=== PATIENT | female | born 1960 | race Two or more races ===

== ENCOUNTER 2017-02-25 08:19 | Inpatient (IN) | payer MEDICAID ==
[2017-02-25] VITALS (11 sets, daily range): BP systolic 117–161; BP diastolic 76–96
[~2017-02-25] VITALS: Ht 157.5 cm; Wt 63.5 kg
[~2017-02-25 08:19] MED LIST: IBUPROFEN600 MG PO; NORCO 5-325 TA1 EACH PO
[2017-02-25] MEDS ORDERED: METFORMIN HCL850 M1 ORAL (08:30)
[2017-02-25] MEDS ORDERED: Ipratropium 0.02% Inh Soln 2.5ml UD HHN ONE (08:45)
[2017-02-25] MEDS ORDERED: Levalbuterol Inh UD 1.25mg/0.5ml HHN ONE (08:45)
[2017-02-25] MEDS ORDERED: Solu-MEDROL 125mg Inj IVP ONE (08:45)
[2017-02-25 08:48] LABS: BASOPHILS % (AUTO) 0.6 % (0.0-2.0); EOSINOPHILS % (AUTO) 0.4 % (0.0-3.0); LYMPHOCYTES % (AUTO) 25.4 % (20.0-45.0); MEAN CORPUSCULAR HEMOGLOBIN 24.2 PG (27.0-31.0); MEAN CORPUSCULAR HGB CONC 31.4 G/DL (32.0-36.0); MEAN CORPUSCULAR VOLUME 77 FL (80-99); MEAN PLATELET VOLUME 7.2 FL (6.5-10.1); MONOCYTES % (AUTO) 8.1 % (1.0-10.0); NEUTROPHILS % (AUTO) 65.5 % (45.0-75.0); PLATELET COUNT 210 K/UL (150-450); RED BLOOD COUNT 5.14 M/UL (4.20-5.40); RED CELL DISTRIBUTION WIDTH 15.1 % (11.6-14.8); WHITE BLOOD COUNT 8.1 K/UL (4.8-10.8)
[2017-02-25 09:07] LABS: ALANINE AMINOTRANSFERASE 19 U/L (3-33); ASPARTATE AMINO TRANSFERASE 16 U/L (5-40); CALCIUM 9.6 mg/dL (8.6-10.2); CARBON DIOXIDE 23 mEQ/L (20-30); CREATININE 0.7 mg/dL (0.5-0.9); GLOMERULAR FILTRATION RATE > 60 mL/min (>60); TOTAL PROTEIN 7.4 g/dL (6.6-8.7)
[2017-02-25 09:08] LABS: ALBUMIN/GLOBULIN RATIO 1.2 (1.0-2.7); ANION GAP 20 (5-15); CHLORIDE 92 mEQ/L (98-107); HEMOLYSIS 2; POTASSIUM 4.1 mEQ/L (3.4-4.9); SODIUM 135 mEQ/L (135-145); TROPONIN I < 0.30 ng/mL (<=0.30)
[2017-02-25 09:10] LABS: REFLEX LACTIC ACID YES OR NO YES
[2017-02-25 09:18] LABS: CKMB < 1.5 ng/mL (< 3.8)
[2017-02-25] MEDS: Levalbuterol Inh UD 1.25mg/0.5ml HHN SCH ×5 (09:35→10:30)
[2017-02-25] MEDS: Ipratropium 0.02% Inh Soln 2.5ml UD HHN SCH ×3 (09:35→10:00)
[2017-02-25 10:20] LABS: APPEARANCE,URINE CLEAR; KETONES,URINE NEGATIVE (NEGATIVE); LEUKOCYTE ESTERASE ,URINE NEGATIVE (NEGATIVE); NITRITE,URINE NEGATIVE (NEGATIVE); PH,URINE 6 (4.5-8.0); PROTEIN,URINE NEGATIVE (NEGATIVE); UROBILINOGEN,URINE NORMAL MG/DL (0.0-1.0)
[2017-02-25 10:35] LABS: BACTERIA,URINE FEW /HPF; RBC,URINE 0-2 /HPF (0 - 2); SQUAMOUS EPITHELIAL CELL,UR FEW /LPF (NONE/OCC); WBC,URINE 0-2 /HPF (0 - 2)
[2017-02-25] MEDS ORDERED: Azithromycin 500 MG in NS 275 ML IV ONE (11:00)
[2017-02-25] MEDS ORDERED: cefTRIAXone 1 GM in NS 55 ML IV ONE (11:00)
[2017-02-25] MEDS ORDERED: NEXIUM20 MG ORAL (11:09)
[2017-02-25] MEDS ORDERED: Azithromycin Inj IV ONE (11:19)
[2017-02-25] MEDS: LR 1000ml 1,000 ML IV SCH ×2 (11:21→12:00)
[2017-02-25 11:50] LABS: THYROID STIMULATING HORMONE 1.06 uIU/mL (0.300-4.500)
--- NOTE | 2017-02-25 13:26 | Emergency Room Report ---
History of Present Illness General Chief Complaint: Upper Respiratory Illness Source: Patient Present Illness HPI 56-year-old female presents ED for evaluation. Patient states she's had a productive cough with shortness of breath for 3 days. Denies history of asthma but states that whenever she gets sick she is prescribed antibiotics and inhaler. States that it is worse this time. Denies any chest pain. No fevers chills. Denies sick contacts recent travel. No other aggravating relieving factors. Denies any other associated symptoms Allergies: Coded Allergies: No Known Allergies (Unverified , 10/11/12) Patient History Past Medical History: DM, GERD Past Surgical History: none Pertinent Family History: none Social History: Denies: alcohol use, drug use, smoking Now: No Immunizations: UTD Reviewed Nursing Documentation: PMH: Agreed, PSxH: Agreed Nursing Documentation-PMH Past Medical History: No History, Except For Hx Diabetes: Yes Hx Gastrointestinal Problems: Yes - taking Nexium daily Review of Systems All Other Systems: negative except mentioned in HPI Physical Exam Vital Signs Date Time Temp Pulse Resp B/P Pulse Ox O2 Delivery O2 Flow Rate FiO2 02/25/17 08:27 97.9 122 20 148/96 95 Room Air 02/25/17 08:40 94 02/25/17 09:17 2.0 Sp02 EP Interpretation: reviewed, normal General Appearance: no apparent distress, alert, GCS 15, non-toxic Head: normocephalic Eyes: bilateral eye PERRL, bilateral eye normal inspection ENT: normal ENT inspection Neck: normal inspection Respiratory: crackles, wheezing Cardiovascular #1: tachycardia Gastrointestinal: normal inspection Rectal: deferred Genitourinary: no CVA tenderness Musculoskeletal: normal inspection Neurologic: alert, oriented x3, responsive, motor strength/tone normal, sensory intact, speech normal Psychiatric: normal inspection Skin: normal inspection Lymphatic: normal inspection Medical Decision Making Diagnostic Impression: Primary Impression: Asthma exacerbation Additional Impressions: Tachycardia Lactic acidosis ER Course Hospital Course 56-year-old F presenting to ED with SOB, wheezing Differential diagnoses include: Pneumonia, CHF exacerbation, pneumothorax, fluid overload Clinical course Patient placed on stretcher. On monitor technician with tachycardia. After initial history and physical, I ordered nebulizer treatments. I ordered labs, IV fluids, EKG, chest x-ray, blood cultures, UA. Labs - no leukocytosis noted, hemoglobin/hematocrit stable, electrolytes okay, lactate 4.9, troponins negative CXR - no infiltrates Because patient was initially tachycardic we used Xopenex instead of albuterol. However patient remains tachycardic. Heart rate to the 120s 130s at times. Patient states her heart rate always runs fast. Patient states she does feel better. However given the lactic acidosis and tachycardia, I am uncomfortable with discharge. Lactic acidosis can be result of an underlying infectious process versus due to metformin Antibiotics given. Thyroid function studies sent. Case discussed with Dr. Mcmahan and he agreed to the patient to his service for further care and support I feel this is a highly complex case requiring extensive working including EKG/ Rhythm strip, Xray/CT/US, Blood/urine lab work, repeat exams while in ED, and administration of strong opiates/narcotics for pain control, admission to hospital or close patient follow up. Diagnosis - asthma exacerbation, tachycardia, lactic acidosis Patient admitted to telemetry in serious condition Labs Test 02/25/17 08:30 02/25/17 09:42 02/25/17 09:50 02/25/17 11:10 White Blood Count 8.1 K/UL (4.8-10.8) Red Blood Count 5.14 M/UL (4.20-5.40) Hemoglobin 12.4 G/DL (12.0-16.0) Hematocrit 39.6 % (37.0-47.0) Mean Corpuscular Volume 77 FL (80-99) Mean Corpuscular Hemoglobin 24.2 PG (27.0-31.0) Mean Corpuscular Hemoglobin Concent 31.4 G/DL (32.0-36.0) Red Cell Distribution Width 15.1 % (11.6-14.8) Platelet Count 210 K/UL (150-450) Mean Platelet Volume 7.2 FL (6.5-10.1) Neutrophils (%) (Auto) 65.5 % (45.0-75.0) Lymphocytes (%) (Auto) 25.4 % (20.0-45.0) Monocytes (%) (Auto) 8.1 % (1.0-10.0) Eosinophils (%) (Auto) 0.4 % (0.0-3.0) Basophils (%) (Auto) 0.6 % (0.0-2.0) Sodium Level 135 mEQ/L (135-145) Potassium Level 4.1 mEQ/L (3.4-4.9) Chloride Level 92 mEQ/L (98-107) Carbon Dioxide Level 23 mEQ/L (20-30) Anion Gap 20 (5-15) Blood Urea Nitrogen 8 mg/dL (7-23) Creatinine 0.7 mg/dL (0.5-0.9) Estimat Glomerular Filtration Rate > 60 mL/min (>60) Glucose Level 254 mg/dL (74-106) Lactic Acid Level 4.90 mmol/L (0.66-2.22) 4.80 mmol/L (0.66-2.22) Calcium Level 9.6 mg/dL (8.6-10.2) Total Bilirubin 0.2 mg/dL (0.0-1.2) Aspartate Amino Transf (AST/SGOT) 16 U/L (5-40) Alanine Aminotransferase (ALT/SGPT) 19 U/L (3-33) Alkaline Phosphatase 83 U/L (35-104) Total Creatine Kinase 44 U/L (26-140) Creatine Kinase MB < 1.5 ng/mL (< 3.8) Creatine Kinase MB Relative Index Troponin I < 0.30 ng/mL (<=0.30) Pro-B-Type Natriuretic Peptide 27 pg/mL (0-125) Total Protein 7.4 g/dL (6.6-8.7) Albumin 4.1 g/dL (3.5-5.2) Globulin 3.3 g/dL Albumin/Globulin Ratio 1.2 (1.0-2.7) Urine Color Pale yellow Urine Appearance Clear Urine pH 6 (4.5-8.0) Urine Specific [place] 1.005 (1.005-1.035) Urine Protein Negative (NEGATIVE) Urine Glucose (UA) Negative (NEGATIVE) Urine Ketones Negative (NEGATIVE) Urine Occult Blood 1+ (NEGATIVE) Urine Nitrite Negative (NEGATIVE) Urine Bilirubin Negative (NEGATIVE) Urine Urobilinogen Normal MG/DL (0.0-1.0) Urine Leukocyte Esterase Negative (NEGATIVE) Urine RBC 0-2 /HPF (0 - 2) Urine WBC 0-2 /HPF (0 - 2) Urine Squamous Epithelial Cells Few /LPF (NONE/OCC) Urine Bacteria Few /HPF (NONE) Thyroid Stimulating Hormone (TSH) 1.060 uIU/mL (0.300-4.500) Free Thyroxine 1.27 ng/dL (0.86-1.85) Total Triiodothyronine 1.13 ng/mL (0.80-2.00) EKG Diagnostic Results Rate: tachycardiac Rhythm: NSR ST Segments: no acute changes ASA given to the pt in ED: No Rhythm Strip Diag. Results EP Interpretation: yes Rhythm: NSR, no PVC's, no ectopy Chest X-Ray Diagnostic Results EP Interpretation: No Findings: no consolidation, no effusion, no pneumothorax, no acute cardiopulmonary disease Number of Views: 1 Last Vital Signs Date Time Temp Pulse Resp B/P Pulse Ox O2 Delivery O2 Flow Rate FiO2 02/25/17 12:38 121 19 117/80 99 Nasal Cannula 4.0 02/25/17 11:03 28 02/25/17 11:00 99.1 Status: improved Disposition: ADMITTED INPATIENT Condition: Serious Referrals: [facility] (PCP) SAEED MOSQUEDA M.D. February 25, 2017 13:26
--- NOTE | 2017-02-25 13:59 | Diagnostic Imaging Report ---
Indication: Shortness of breath Technique: Single AP view of the chest. Findings: Comparison: None. Margin osteophytes mid to lower thoracic spine. The extra pulmonary soft tissues, cardiomediastinal silhouette, pulmonary vasculature and parenchyma, and pleural surfaces are unremarkable. IMPRESSION: Degenerative spondylosis Otherwise negative AP chest.
[2017-02-25 16:48] LABS: REFLEX LACTIC ACID YES OR NO YES
[2017-02-25 18:06] LABS: TROPONIN I < 0.30 ng/mL (<=0.30)
[2017-02-25] MEDS: NovoLOG Insulin Flexpen SUBQ SCH (20:43)
[2017-02-26 00:54] LABS: TROPONIN I < 0.30 ng/mL (<=0.30)
[2017-02-26 04:30] VITALS: BP 124/76
[2017-02-26] MEDS: guaiFENesin w/Codeine 5ml Liq ud ORAL PRN ×2 (05:00→10:47)
[2017-02-26] MEDS: NovoLOG Insulin Flexpen SUBQ SCH ×3 (06:31→16:30)
[2017-02-26] MEDS ORDERED: Albuterol ud Inhalation HHN PRN (08:00)
[2017-02-26 08:09] VITALS: BP 135/82
[2017-02-26 08:14] LABS: FREE TRIIODOTHYRONINE 2.6 pg/mL (2.0-4.4)
[2017-02-26] MEDS ORDERED: cefTRIAXone 1 GM in D5W 55 ML IVPB SCH (08:30)
[2017-02-26 08:35] LABS: BASOPHILS % (AUTO) 0.4 % (0.0-2.0); LYMPHOCYTES % (AUTO) 24.5 % (20.0-45.0); MEAN CORPUSCULAR HGB CONC 31.3 G/DL (32.0-36.0); MEAN CORPUSCULAR VOLUME 77 FL (80-99); MEAN PLATELET VOLUME 7.1 FL (6.5-10.1); MONOCYTES % (AUTO) 6.8 % (1.0-10.0); NEUTROPHILS % (AUTO) 68.3 % (45.0-75.0); PLATELET COUNT 216 K/UL (150-450); RED BLOOD COUNT 4.84 M/UL (4.20-5.40); RED CELL DISTRIBUTION WIDTH 14.8 % (11.6-14.8); WHITE BLOOD COUNT 10.4 K/UL (4.8-10.8)
[2017-02-26 09:01] LABS: ANION GAP 17 (5-15); CARBON DIOXIDE 25 mEQ/L (20-30); CHLORIDE 97 mEQ/L (98-107); CREATININE 0.5 mg/dL (0.5-0.9); GLOMERULAR FILTRATION RATE > 60 mL/min (>60); HEMOLYSIS 0; POTASSIUM 3.5 mEQ/L (3.4-4.9); SODIUM 139 mEQ/L (135-145); TROPONIN I < 0.30 ng/mL (<=0.30)
--- NOTE | 2017-02-26 10:30 | Diagnostic Imaging Report ---
ndication: Chest pain Technique: IV administration nonionic contrast. Spiral acquisitions obtained from the lung bases to the lung apices. Multiplanar and 3-D reconstructions were generated. Total dose length product 541 mGycm. CTDIvol(s) 12, 37, 17 mGy. Dose reduction achieved using automated exposure control Comparison: None Findings: There is good quality opacification of the pulmonary arteries. No intraluminal filling defects or other findings to suggest acute pulmonary embolus are evident. There is no evidence of thoracic aortic aneurysm or dissection. However, there is possible left ventricular muscular hypertrophy. There is some atelectasis or scarring at both lung bases. No infiltrates, effusions, nodules, masses, or congestion demonstrated. No pericardial effusion. No mediastinal or hilar mass or adenopathy. Subcentimeter nodules are seen within the visualized portions of the thyroid lower poles. No axillary or chest wall mass or adenopathy. The included upper abdominal anatomy is unremarkable except for a granulomatous calcification within the left hepatic lobe. There are degenerative proliferative changes of the thoracic spine. Impression: Negative for acute pulmonary embolus or other acute pathology Possible left ventricular muscular hypertrophy Minimal bilateral basilar pulmonary atelectasis or scarring Subcentimeter nodules within the thyroid. No further followup necessary Evidence of old granulomatous disease within the liver Degenerative spondylosis The CT scanner at [facility] is accredited by the [employer] and the scans are performed using protocols designed to limit radiation exposure to as low as reasonably achievable to attain images of sufficient resolution adequate for diagnostic evaluation.
[2017-02-26] MEDS ORDERED: Azithromycin 250mg tab ORAL SCH (11:00)
[2017-02-26] MEDS ORDERED: cefTRIAXone 1gm/D5W 55ml IVPB SCH ×2 (11:00)
[2017-02-26 11:38] VITALS: BP 135/86
[2017-02-26] MEDS: Solu-MEDROL 40mg Inj IVP SCH ×2 (12:21→18:00)
[2017-02-26 15:18] VITALS: BP 135/86
[2017-02-26] MEDS ORDERED: MEDROL4 MG ORAL (15:33)
[2017-02-26] MEDS ORDERED: Ipratropium 0.02% Inh Soln 2.5ml UD HHN PRN (15:38)
[2017-02-26] MEDS ORDERED: Tubing IV Secondary IV ONE (17:52)
--- NOTE | 2017-02-26 19:02 | Cardiology Report ---
APPROVED REPORT EKG Measurement Heart [id number] Sinus tachycardia Right atrial enlargement Borderline ECG
--- NOTE | 2017-02-26 20:32 | Consultation ---
DATE OF CONSULTATION: 02/26/2017 INFECTIOUS DISEASES CONSULTATION: REFERRING PHYSICIAN: Julio Mcmahan M.D. REASON FOR CONSULTATION: Possible pneumonia. HISTORY OF PRESENTING ILLNESS: This is a 56-year-old lady with history of diabetes and GERD, who came in to [place] emergency room with chest pain and shortness of breath as well as productive cough. She was seen in [place] emergency room. A chest x-ray was unremarkable. An Infectious Diseases consultation has been obtained for antibiotics. PAST MEDICAL HISTORY: 1. History of diabetes. 2. GERD. MEDICATIONS: As an inpatient, the patient is on ceftriaxone, Solu-Medrol, azithromycin, Proventil, Atrovent, Robitussin with codeine, insulin, Protonix, and metformin. ALLERGIES: No known drug allergies. SOCIAL HISTORY: She does not smoke, drink, or use drugs. FAMILY HISTORY: Her mother had a myocardial infarction. REVIEW OF SYSTEMS: Respiratory: No fever or chills. She does have cough which is productive. She has shortness of breath. She did have chest pain, which is improving . Cardiac: She did have chest pain that is improved. No palpitations. No dizziness. No syncope. Gastrointestinal: No nausea. No vomiting. No abdominal pain or diarrhea. PHYSICAL EXAMINATION: VITAL SIGNS: Temperature of 97 degrees, T-max of 99.1 degrees, pulse of 89, respiratory rate 22, blood pressure 135/86, and O2 saturation of 96%. HEENT: Pupils equally reactive to light and accommodation. Mouth appears clean without thrush. NECK: Supple. No adenopathy. No JVD. CARDIOVASCULAR: Regular rate and rhythm. No murmurs. LUNGS: Clear to auscultation bilaterally. No crackles. No wheezes. ABDOMEN: Soft and nontender. No organomegaly. EXTREMITIES: No cyanosis, no clubbing, no edema. LABORATORY AND DIAGNOSTIC DATA: White count 10.4, hemoglobin 11.6, hematocrit 37.1, MCV 77, and platelet count of 216,000 with neutrophils of 68%. Sodium 139, potassium 3.5, chloride 97, bicarbonate 25, BUN 8, creatinine 0.5, and glucose 210. Calcium 9. Troponin less than 0.3. Total bilirubin 0.2. AST 16, ALT 19, and alkaline phosphatase 83. CK of 44. CK-MB less than 1.5. Troponin less than 0.3. Total protein 7.4. Albumin 4.1. UA showing 0 to 2 white cells. Chest x-ray was negative. CT angiogram of the chest was negative for pulmonary embolism. Minimal bilateral bibasilar pulmonary atelectasis or scarring noted. ASSESSMENT: 1. This is a 56-year-old lady with history of diabetes and gastroesophageal reflux disease, who comes in and is found to have possible bronchitis exacerbation or an atypical pneumonia. 2. Diabetes. 3. Gastroesophageal reflux disease. PLAN: 1. Continue ceftriaxone and azithromycin for now. 2. We will order sputum for Gram stain and culture. 3. We will order for serum Legionella antibody. 4. We will follow up cultures and adjust antibiotics accordingly. I would like to thank, Dr. Mcmahan, for this consultation. Jonah Michael M.D. DR: Forest JOB#: [id number] CC: Julio Mcmahan M.D.; Fax#: [phone]
--- NOTE | 2017-02-27 02:32 | History and Physical Report ---
DATE OF ADMISSION: 02/25/2017 HISTORY OF PRESENT ILLNESS: This is a 56-year-old female with a previous history of asthma, she has been using an inhaler at home on an as needed basis. She reports cough and shortness of breath for several days. The patient came to the hospital. She was found to have elevated lactic acid. She is undergoing continued workup. A CT pulmonary angiogram is negative for PE. She was admitted to the hospital. She was tachycardic on arrival. PAST MEDICAL HISTORY: Does have gastroesophageal reflux disease and questionable asthma. PAST SURGICAL HISTORY: None. MEDICATIONS: Home medications, unknown inhaler plus Nexium. FAMILY HISTORY: Noncontributory. SOCIAL HISTORY: No alcohol or tobacco usage. REVIEW OF SYSTEMS: Denies any headaches, hematemesis, melena, or hematochezia. PHYSICAL EXAMINATION: GENERAL: Reveals a 56-year-old female. VITAL SIGNS: Blood pressure is 140/90, heart rate 110, respirations 20, and she is afebrile. HEENT: Unremarkable. CHEST: Shows clear breath sounds bilaterally. ABDOMEN: Soft. EXTREMITIES: There is no edema. LABORATORY AND DIAGNOSTIC DATA: Lab testing shows normal CBC and BMP. Lactic acid is 6.8, previously was noted to be 4.9 followed by 8.7. Thyroid function tests are normal. Urinalysis negative. Imaging studies, as discussed above. CT angio is negative. X-ray of the chest is negative. IMPRESSION: Acute bronchospasm/asthma. DISCUSSION: The patient is doing well. Her lactic acid is elevated concerning for sepsis, however, I suspect this may be a combination of work of breathing as well as Glucophage use. I would discontinue Glucophage for now and sliding scale. Start Rocephin, azithromycin, intravenous steroids, pulmonary hygiene, bronchodilators, and oxygen. Discussed with family at bedside. Discharge planning in the next 24 hours. Julio Mcmahan M.D. DR: AUBRIE JOB#: [id number] CC:
== END 2017-02-26 17:53 | disposition home or self-care (01) | DRG 141 ==
LOC: EMR 08:42 → 2E 12:30 → EDBEDREQ 14:50 → 2E 19:15
DX: J45.909 Unspecified asthma, uncomplicated (principal); E11.9 Type 2 diabetes mellitus without complications; K21.9 Gastro-esophageal reflux disease without esophagitis; Z79.84 Long term (current) use of oral hypoglycemic drugs
CPT/HCPCS: 36415; 71010; 71275; 80048; 80053; 81003; 82550; 82553; 82962; 83605; 83880; 84439; 84443; 84480; 84481; 84484; 85025; 86713; 87040; 87070; 87205; 93005; 94640; 94664; J1815

== ENCOUNTER 2018-06-14 21:20 | Emergency (ER) | payer MEDICAID ==
[~2018-06-14] VITALS: Ht 157.5 cm; Wt 63.5 kg
[~2018-06-14 21:20] MED LIST changes: +MEDROL4 MG ORAL; +METFORMIN HCL850 M1 ORAL; +NEXIUM20 MG ORAL
--- NOTE | 2018-06-14 21:35 | Emergency Room Report ---
History of Present Illness General Chief Complaint: Multiple Trauma/Fall Source: Patient Present Illness HPI Patient's 57-year-old female presented after fall from height onto the grass. The patient stated that she fell approximately 7 feet onto her right side striking her head. She didn't lose consciousness. She reports having increased dizziness. She reports having some headache. She had vomited twice. She was having a prior history of diabetes as well as gastritis. Patient states that she normally takes baby aspirin as well as Nexium. The injury occurred approximately 2 hour prior to arrival. Allergies: Coded Allergies: No Known Allergies (Unverified , 10/11/12) Patient History Past Medical History: DM, HTN Now: No Reviewed Nursing Documentation: PMH: Agreed; PSxH: Agreed Nursing Documentation-PMH Hx Cardiac Problems: No Hx Diabetes: Yes Hx Cancer: No Hx Gastrointestinal Problems: Yes - GERD Hx Neurological Problems: No Review of Systems All Other Systems: negative except mentioned in HPI Physical Exam Vital Signs Date Time Temp Pulse Resp B/P (MAP) Pulse Ox O2 Delivery O2 Flow Rate FiO2 06/14/18 21:22 98.1 89 20 132/84 100 98.1 Sp02 EP Interpretation: reviewed, normal General Appearance: normal inspection, alert, no apparent distress, GCS 15 Eyes: normal eye exam, PERRL, EOMI, lids + conjunctiva normal, no hyphema, no racoon eyes ENT: normal ENT inspection, oropharynx normal, no moore signs Neck: trach midline, no bony tend, full range of motion without pain Respiratory: effort normal, no retractions, clear to auscultation, chest symmetrical, palpation of chest normal, speaking in full sentences Cardiovascular: regular rate, rhythm, no JVD Cardiovascular #2: 2+ radial (R), 2+ radial (L), 2+ dorsalis pedis (R), 2+ dorsalis pedis (L) Gastrointestinal: normal inspection, non-tender, non-distended, no rebound/ guarding, normal bowel sounds Genitourinary: normal inspection Musculoskeletal: normal ROM, non-tender, back normal Skin: no rash, no lacerations, normal palpation Lymphatic: normal inspection Neurologic: normal inspection, CN II-XII intact, oriented x3, sensory intact, motor strength/tone normal, normal speech Psychiatric: normal inspection, memory normal, mood normal, no suicidal/ homicidal ideation Medical Decision Making Diagnostic Impression: Primary Impression: Fall Additional Impression: Head injury ER Course patient presented after a fall. Differential diagnosis included was not limited to neck fracture, CVA, close head injury, syncopal episode, basilar ischemia. The patient was noted to have no severe neck pain. CT the head read by radiology showed no evidence of acute intracranial hemorrhage or fracture. The patient was given prescription for medications for nausea. She was advised to return if she began having a persistent vomiting altered mental status or concerning signs or symptoms.The patient is advised to follow up with primary care doctor in 1-2 days. Patient is advised to return if any worsening condition or if any changes in status that are concerning. This report is dictated with [employer] camera storage clerk software which may occasionally lead to discrepancies related to use of this software. Last Vital Signs Date Time Temp Pulse Resp B/P (MAP) Pulse Ox O2 Delivery O2 Flow Rate FiO2 06/14/18 21:22 98.1 89 20 132/84 100 98.1 Status: improved Disposition: HOME, SELF-CARE Condition: Stable Scripts Ondansetron (Zofran) 4 Mg Tablet 4 MG ORAL Q6H PRN for Nausea & Vomiting, #15 TAB 0 Refills Prov: Fercho Mcmillan MD 06/14/18 Fercho Mcmillan MD Jun 14, 2018 21:35
[2018-06-14 21:44] VITALS: BP 132/84
[2018-06-14] MEDS ORDERED: ZOFRAN4 MG ORAL (22:24)
[2018-06-14 22:37] VITALS: BP 132/84
--- NOTE | 2018-06-15 09:50 | Diagnostic Imaging Report ---
Indication: Head pain, status post fall Technique: Continuous helical CT scanning of the head was performed without intravenous contrast material. Axial and coronal 5 mm sections were generated. Radiation dose was minimized using automated exposure control Dose: Total Dose Length Product - DLP [address] Dose Index - CTDIvol(s) 70 mGy. Comparison: none Findings: The ventricular system is normal in size and configuration. There is no shift of midline structures. No abnormal extra-axial fluid collections are noted. There is no evidence of intracerebral bleeding. No other abnormal high or low density areas are noted within the brain. Normal monahan-white differentiation. Intact calvarium. Visualized orbits and sinuses are unremarkable. The mastoids are clear Impression: Normal CT scan of the head without contrast material. This agrees with the preliminary interpretation provided overnight by [facility] service. The CT scanner at [facility] is accredited by the [employer] and the scans are performed using protocols designed to limit radiation exposure to as low as reasonably achievable to attain images of sufficient resolution adequate for diagnostic evaluation.
== END 2018-06-14 22:41 | disposition home or self-care (01) ==
LOC: EMR 21:39
DX: S09.90XA Unspecified injury of head, initial encounter (principal); W17.89XA Other fall from one level to another, initial encounter; Y92.89 Other specified places as the place of occurrence of the external cause; R42 Dizziness and giddiness; E11.9 Type 2 diabetes mellitus without complications; I10 Essential (primary) hypertension; K21.9 Gastro-esophageal reflux disease without esophagitis
CPT/HCPCS: 70450; 99284